=== PATIENT | male | born 1985 | race Caucasian/White ===

== ENCOUNTER 2017-07-27 20:23 | Emergency (ER) | payer OTHER ==
[2017-07-27] MEDS ORDERED: LIDOCAINE 2% 10 ML MDV ONE (21:49)
[2017-07-27] MEDS ORDERED: AMOX/CLAV 875 MG/125 MG TABLET PO STA (22:26)
--- NOTE | 2017-07-27 22:33 | ED Physician Documentation ---
PD HPI ANIMAL BITE - Stated complaint Stated Complaint: DOG BITE - Chief complaint Chief Complaint: General - History obtained from History obtained from: Patient - History of Present Illness Location of injury(ies): Face Details of the event: Dog, Pet animal, Well appearing, Immunized, Provoked Timing - onset: How many minutes ago (30) Timing - details: Abrupt onset Improved by: Immobilization Associated symptoms: Swelling. No: Weakness, Numbness Similar symptoms before: Has not had sx before Recently seen: Not recently seen - Additional information Additional information: Patient is a 32 year old male with no significant past medical history who is presenting to the emergency department for dog bit. patient states that he was playing with his puppy with a pull toy and the puppy got excited and nipped him in the mouth. Patient states that the dog is up to date with its vaccines. Review of Systems Constitutional: denies: Fever, Chills Eyes: reports: Reviewed and negative Ears: reports: Reviewed and negative Nose: denies: Epistaxis Throat: reports: Oral lesions / sores. denies: Sore throat Cardiac: reports: Reviewed and negative Respiratory: reports: Reviewed and negative GI: denies: Nausea, Vomiting : reports: Reviewed and negative Skin: reports: Laceration (s) Musculoskeletal: reports: Reviewed and negative Neurologic: denies: Numbness, Difficulty speaking Immunocompromised: denies: Immunocompromised PD PAST MEDICAL HISTORY - Past Medical History Past Medical History: No - Past Surgical History Past Surgical History: No General: Appendectomy - Present Medications Home Medications: Ambulatory Orders Medication Instructions Recorded Confirmed Amox/Clav 875/125 [Augmentin] 1 each PO Q12H #14 tablet 07/27/17 - Allergies Allergies/Adverse Reactions: Allergies Allergy/AdvReac Type Severity Reaction Status Date / Time No Known Drug Allergies Allergy Verified 07/27/17 20:36 - Social History Does the pt smoke?: No Smoking Status: Never smoker Does the pt drink ETOH?: No Does the pt have substance abuse?: No - Immunizations Immunizations are current?: Yes PD ED PE NORMAL - Vitals Vital signs reviewed: Yes - General General: Alert and oriented X 3, No acute distress - HEENT HEENT: PERRL, Moist mucous membranes, Pharynx benign, Dentition benign - Cardiac Cardiac: RRR, No murmur - Respiratory Respiratory: No respiratory distress - Abdomen Abdomen: Non distended - Extremities Extremities: No deformity, No edema - Neuro Neuro: Alert and oriented X 3, No motor deficit, No sensory deficit, Normal speech - Psych Psych: Normal mood, Normal affect PD ED PE EXPANDED - HEENT HEENT: Lip laceration (jagged 1cm laceration on right inferior portion of lower lip) Results - Vitals Vitals: Vital Signs - 24 hr 07/27/17 20:32 Temperature 36.7 C Heart Rate 56 L Respiratory 17 Rate Blood Pressure 119/75 O2 Saturation 99 Oxygen O2 Source Room air Procedures - Laceration (location) right lower lip Length in cm: 1 Wound type: Irregular Neurovascular status: Sensory intact, Vascular intact Anesthesia: Lidocaine 2% Wound Preparation: Irrigated copiously NS Skin layer closure: Nylon, Interrupted, Size #-0 - enter number (6), Sutures - enter # (5) Other: Patient tolerated well, No complications, Neurovascular intact, Tetanus booster given Complexity: Intermediate - Regional nerve block Nerve block site: Mental Right / left: Right Nerve block anesthesia: Lidocaine 2% Nerve block aftercare: Moderate Anesthesia, No complications PD MEDICAL DECISION MAKING - ED course Complexity details: reviewed old records, re-evaluated patient, considered differential, d/w patient ED course: Patient was seen and examined at bedside. Patient's laceration was repaired as described above. Patient was started on augmentin and given detailed discharge and return instructions. Patient required no further work up and was stable for discharge wiht outpatient follow up. Departure - Departure Disposition: 01 Home, Self Care Clinical Impression: Laceration of lip Condition: Good Instructions: ED Laceration Mouth Follow-Up: primary,care provider [Other] - Within 1 week Prescriptions: Amox/Clav 875/125 [Augmentin] 1 each PO Q12H #14 tablet Comments: Please keep the wound clean and dry. You should apply ice to the wound to help reduce swelling. You can take motrin or tylenol as needed for pain. You should monitor for signs of infection and take your entire course of antibiotics. You should follow up wiht your pmd in 5 days for suture removal. You may return to the emergency department at any time for new, worsening or uncontrollable symptoms.
[2017-07-27] MEDS ORDERED: TETANUS/DIPHTHERIA/PERTUSSIS 0.5 ML SYRINGE IM ONE (22:35)
[2017-07-27] MEDS ORDERED: AMOX/CLAV 875 MG/125 MG TABLET PO ONE (22:35)
[2017-07-27 22:46] VITALS: BP 127/83
== END 2017-07-27 22:46 | disposition home or self-care (01) ==
LOC: ED 20:23
DX: S01.511A Laceration without foreign body of lip, initial encounter (principal); W54.0XXA Bitten by dog, initial encounter; Y93.89 Activity, other specified
CPT/HCPCS: 12051; 99283; A9270

== ENCOUNTER 2019-01-14 09:24 | Outpatient (CLI) | payer OTHER | END 2019-01-14 09:25 | disposition home or self-care (01) | LOC: SC 09:24 | PROVIDERS: ATTEND Internal Medicine Pulmonary Disease | DX: R06.83 Snoring (principal); G47.10 Hypersomnia, unspecified; F51.12 Insufficient sleep syndrome; R41.89 Other symptoms and signs involving cognitive functions and awareness; G47.8 Other sleep disorders | CPT/HCPCS: 99203; 99212 ==

== ENCOUNTER 2019-03-05 20:24 | Outpatient (CLI) | payer OTHER | END 2019-03-05 20:25 | disposition home or self-care (01) | LOC: SC 20:24 | PROVIDERS: ATTEND Internal Medicine Pulmonary Disease | DX: G47.33 Obstructive sleep apnea (adult) (pediatric) (principal) | CPT/HCPCS: 95810 ==

== ENCOUNTER 2019-03-17 12:51 | Outpatient (CLI) | payer OTHER | END 2019-03-17 12:52 | disposition home or self-care (01) | LOC: SC 12:51 | PROVIDERS: ATTEND Internal Medicine Pulmonary Disease | DX: G47.33 Obstructive sleep apnea (adult) (pediatric) (principal) | CPT/HCPCS: 99212; 99213 ==